=== PATIENT | female | born 1945 | race Caucasian/White ===

== ENCOUNTER 2016-09-24 11:05 | Inpatient (IN) | payer OTHER ==
[~2016-09-24] VITALS: Ht 162.6 cm; Wt 103.0 kg
--- NOTE | ~2016-09-24 | HC ---
Formerly [facility] [place] [address] CONSULTATION Name: ZACHERY FARFAN Room #: 543-P [facility] IN .R.#: [id number] Admission: 09/24/16 Attend Phys: Tony Downs MD Discharge: Date of : 45 Report #: [id number] THIS REPORT FOR: //name// CC: Tony Downs King Adriana DATE OF SERVICE: 09/24/2016 SERVICE: Orthopedics. CONSULTING PHYSICIAN: Devin Bryant MD REQUESTING PHYSICIAN: Tony Downs MD REASON FOR CONSULTATION: Right elbow trauma. 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 PAST SURGICAL HISTORY: Right hand squamous cell carcinoma excision, basal cell carcinoma excision, hysterectomy in 1988, cardiac stent in February of 2006 following myocardial infarction, cholecystectomy in 1993. ALLERGIES: NITROFURANTOIN and MORPHINE. MEDICATIONS: Presently Bystolic, Coenzyme Q10, Praluent, Zantac, vitamin D3, insulin, Norvasc, Diovan, metformin, fenofibrate, acid, aspirin 325 mg, fish oil, levothyroxine. SOCIAL HISTORY: The patient is . She does not use tobacco, alcohol or drugs. She lives in [place], [place]. FAMILY HISTORY: Noncontributory. REVIEW OF SYSTEMS: Positive for left knee pain, left elbow pain, right elbow pain. Negative for fever, chills, nausea, vomiting, diarrhea, chest pain, shortness of breath, recent skin issues or musculoskeletal complaints. No current complaints, although she has a history of recurrent urinary tract infections and urinary frequency. No neurologic issues. She wears a brace for her posterior tibial tendon dysfunction. HISTORY OF PRESENT ILLNESS: The patient is a 71-year-old right-hand dominant female who was going to breakfast today with her and she tripped on a step, Formerly [facility] [address] [place] [address] CONSULTATION Name: ZACHERY FARFAN Room #: 543-P [facility] IN [facility].#: [id number] Admission: 09/24/16 Attend Phys: Tony Downs MD Discharge: Date of : 45 Report #: [id number] fell and landed on her left upper extremity. She sustained a fracture dislocation of the right elbow. Among other injuries, she presented to the emergency room, where she was diagnosed with injuries and then was admitted. She reports pain in the right elbow at rest, pain in the left elbow with movement and some pain in the left knee with attempted ambulation. PHYSICAL EXAMINATION: VITAL SIGNS: Temperature 36.9, pulse 58, respiratory rate 20, blood pressure 156/64, pulse ox 96%. GENERAL: She is overweight, but otherwise healthy well-appearing female. She is lying supine in hospital bed, no acute distress. Alert and oriented. HEAD AND NECK: Demonstrated no signs of acute trauma. She does move her neck without difficulty. MUSCULOSKELETAL: There is tenderness to the right upper extremity over the shoulder as well as the elbow. The compartments are soft. She can be palpated through the splint. She is in a right arm long arm splint with a sling in place. She has sensation intact, graded as normal by her subjective assessment in the distribution of the radial, median and ulnar nerves. She demonstrates weak motor function to these nerves as well. Limited significantly by pain. There is brisk capillary refill present. The left upper extremity skin is intact. She has IV in place. She has pain with active pronation and supination of the elbow referred to the lateral elbow. There is tenderness over the radial head. No tenderness over the shoulder, wrist or fingers. She has motor and sensory function intact distally with palpable pulse. Left lower extremity: There is a small palpable swelling on the anterolateral aspect of the left knee. She has good range of motion, no effusion, no bony crepitus. She has a palpable pulse. She has decreased sensation secondary to neuropathy. No signs of acute injury. Negative logroll. Right lower extremity: Negative logroll. No bony or soft tissue tenderness or crepitus. Palpable pulse is present and altered distal neurologic examination secondary to neuropathy. IMAGING: Left elbow x-rays demonstrate a nondisplaced left radial head fracture extending into the radial neck, it is longitudinal in orientation. No other fractures. Left knee 2 views negative for fracture or dislocation. Right humerus, elbow and forearm x-rays are taken. There is a fracture dislocation of the right elbow with highly comminuted coronoid and what appears to be a highly comminuted olecranon fracture and what appears to be a comminuted coronoid fracture. CT scan of the right elbow shows no evidence of skin tenting. There is a fracture dislocation of the proximal ulna with radial head dislocation, ulnohumeral dislocation, comminuted olecranon fracture extending into the shaft and coronoid fracture. IMPRESSION: 1. A 71-year-old female with right elbow highly comminuted fracture dislocation. 2. Nondisplaced left radial head and neck fractures. [address] [address] CONSULTATION Name: ZACHERY FARFAN Room #: 543-P ADM IN Tania#: [id number] Admission: 09/24/16 Attend Phys: Tony Downs MD Discharge: Date of : 45 Report #: [id number] 3. Left knee contusion. 4. Insulin-dependent diabetes mellitus, recently poorly controlled. 5. History of coronary artery disease status post stent. PLAN: I had a long discussion with the patient and her about these injuries with management. She will be allowed range of motion as tolerated. I recommended against a sling as she will be immobilized in the right elbow for some time. Regarding the right elbow, this is a severe injury to the elbow with a high incidence of complications whether that be associated neurologic injury, malunion, nonunion, recurrent instability and especially stiffness postoperatively. I discussed the treatment strategy with her. We will proceed with surgical treatment with open reduction and internal fixation, ligament repair, stabilization of the instability as indicated and advancement to range of motion as soon as able. We also discussed risk of infection and hardware irritation due to subcutaneous placement of much of the hardware as a result of this surgery. I explained the potential for increased infection due to the diabetes and recent poorly controlled sugars and encouraged strict sugar control and immediate intermediate postoperative period. Her questions were answered. Finally we will proceed with surgery tomorrow if she is felt to be medically optimized. If not we will hold off and move forward and internal medicine admitting team has felt her to be in optimal condition. <ELECTRONICALLY SIGNED> By: Devin Bryant MD 09/25/16 1036 1735 [id number] Devin Bryant MD /deb
--- NOTE | ~2016-09-24 | O ---
[facility] [place] [address] OPERATIVE REPORT Name: ZACHERY FARFAN Room #: 543-P ADM IN M.R.#: [id number] Admission: 09/24/16 Attend Phys: Tony Downs MD Discharge: Date of : 45 Report #: [id number] THIS REPORT FOR: //name// CC: Tony Wright DATE OF SERVICE: 09/25/2016 SERVICE: Orthopedics. FACILITY: [facility]. SURGEON: Devin Bryant MD MEDICAL PRACTICE ASSISTANT: None. PREOPERATIVE DIAGNOSES: 1. Right elbow fracture dislocation. 2. Right radial head fracture. 3. Right olecranon fracture of proximal ulna, highly comminuted. 4. Right coronoid fracture of proximal ulna, comminuted. POSTOPERATIVE DIAGNOSES: 1. Right elbow fracture dislocation. 2. Right radial head fracture, comminuted. 3. Right olecranon fracture of proximal ulna, highly comminuted. 4. Right coronoid fracture of proximal ulna, comminuted. 5. Right elbow lateral ligament tear. 6. Traumatic chondromalacia of distal humerus, olecranon and radial head PROCEDURE: 1. Open reduction, right elbow dislocation. 2. Open reduction internal fixation, right proximal ulnar fracture including fixation of the coronoid and olecranon fractures. 3. Open reduction right radial head dislocation with excision of loose body from radiocapitellar joint. 4. Open repair, right elbow lateral ligament tear. 5. Open ulnar nerve decompression & neurolysis, right elbow. COMPLICATIONS: None. SPECIMENS: None. DRAINS: Hemovac. ESTIMATED BLOOD LOSS: 50 mL. [facility] [address] [place] [address] OPERATIVE REPORT Name: ZACHERY FARFAN Room #: 543-P [facility] IN [facility]#: [id number] Admission: 09/24/16 Attend Phys: Tony Downs MD Discharge: Date of : 45 Report #: [id number] ANESTHESIA TYPE: Single shot regional nerve block with general endotracheal. FINDINGS: 1. Grossly unstable elbow joint with highly comminuted olecranon fracture and comminuted radial head fracture. 2. Traumatic chondromalacia of the distal humerus where it had driven through the olecranon and articular surface. 3. Radial head fragment excision measuring approximately 10% of surface area. Fragment was too small for internal fixation. 4. Synthes 3.5 mm locking LCP olecranon plate with 6 shaft holes. 5. Mitek QuickAnchor with double loaded #2 suture anchor for lateral ligament repair. 6. Anatomic reduction on multiple planes of x-ray including lateral after skin closure and splint application. HISTORY AND INDICATIONS: The patient is a 71-year-old right-hand dominant female who fell and sustained a severe right elbow injury at a restaurant yesterday. She presented to the emergency room, where she was noted to have a fracture dislocation of the right elbow. She is also noted to have a nondisplaced fracture of the left radial head and radial neck. This is being treated conservatively with active range of motion. The right elbow was indicated for surgery for the right upper extremity and the risks, benefits, alternatives and indications for surgery were discussed with her during a long preoperative visit during the initial consultation and discussed with her as well at the same time. Risks include but not limited to pain, bleeding, infection, injury to nerves or blood vessels, persistent pain despite surgical intervention, failure of any repairs, reconstruction, progression of any preexisting chondral injury, stiffness, need for further surgery including revision, hardware removal, arthrofibrosis procedure as well as complications related to anesthesia such as stroke, heart attack, pulmonary complications, thromboembolic disease and . Despite these risks, she wished to proceed. PROCEDURE IN DETAIL: After right upper extremity was correctly identified in the preoperative holding area as the operative extremity, the patient underwent placement of a single shot regional nerve block by the anesthesia team. She was then taken to the operating room and placed supine on operating table and general endotracheal anesthesia was induced without complication. Then she was turned to the lateral decubitus position with the right side up. All bony prominences and subcutaneous nerves were padded appropriately. Prophylactic antibiotics were administered with 2 grams Ancef and redosed later in the case. Due to her elevated sugars in the 200-250 mL range recently and a stated history of previous recurrent infection, she also received vancomycin later in the procedure. Right upper extremity was then prepped and draped in standard [address] [address] OPERATIVE REPORT Name: ZACHERY FARFAN Room #: 543-P [facility] IN ..#: [id number] Admission: 09/24/16 Attend Phys: Tony Downs MD Discharge: Date of : 45 Report #: [id number] sterile fashion. A time out was performed. A sterile tourniquet was applied to the right upper extremity. An Esmarch was used to exsanguinate the extremity and tourniquet was inflated to 250 mmHg. The total tourniquet time was 2 hours and 53 minutes. The tourniquet was initially inflated for 2 hours, then it was let down for 54 minutes and then it was elevated for 53 additional minutes. A standard posterior approach was utilized so that all procedures could be done through this. Full thickness skin flaps were developed down to the olecranon and the fracture. The triceps was identified. It had its attachment to the olecranon fragment and intact. There is highly comminuted fracture of the olecranon with cortical fragments as well as multiple small cancellous fragments. There was also articular comminution as was present in the radial head. During the exposure, the ulnar nerve was identified and complete ulnar nerve neurolysis and decompression was performed up proximally into the interval where the nerve exited the septum and then distally into the flexor musculature on the volar forearm. The nerve was protected with vessel loops throughout the procedure. The dissection was then taken laterally where the lateral ligament rupture was visualized. Lateral approach to the joint was completed with a sharp incision through the common extensor tendon origin and then the radial head was evaluated. The longitudinal incision was extended to the annular ligament, which was later repaired in order to obtain access to the more anterior portion of the radiocapitellar joint where the fragment was located. This was a small fragment, but it was providing a block to range of motion under evaluation and this was excised and then approximately 3 pieces of small articular cartilage were removed from the radial capitellar joint as well. This portion of the joint was then thoroughly irrigated and the remaining portion of the radial head moved smoothly without any obstruction to motion. The olecranon fracture was then debrided. The more proximal fragment where the triceps inserted was reflected dorsally to allow visualization of the ulnohumeral joint. There was an extensive amount of comminution. The hematoma was evacuated and then with retraction maneuver on the metaphyseal fragment that was distal to the joint, the coronoid could be evaluated. There was comminution of the coronoid as well, but there was one primary fragment that was retainable after the small loose fragments were debrided and discarded as they were not reconstructable. A total of 2 #2 nonabsorbable sutures were passed through and around the coronoid process in mattress fashion. 1 mm drill holes were placed so that the primary suture could be passed with suture passage device around the anterior aspect of the coronoid incorporating a portion of the capsule, but ensuring that the soft tissue penetration was minimal, so as to protect the anterior neurovascular structures. After this was performed, a drill hole was created x 3 through the metaphyseal proximal ulna fragment and then the sutures were passed through this and they were tied securely and this provided a good anatomic reduction of the [address] [address] OPERATIVE REPORT Name: FARFANZACHERY Room #: 543-P [facility] IN ..#: [id number] Admission: 09/24/16 Attend Phys: Tony Downs MD Discharge: Date of : 45 Report #: [id number] coronoid process. After this was completed, the 6-[id number]-adsaecw ulnar fracture was then addressed. There was a coronal split involving essentially the middle fragment, which was then exposed and debrided of hematoma and then this was reduced with a reduction forceps to the ulnar shaft fragment and a total of 3 Synthes 2.4 mm screws were placed in interfragmentary mode to build back this metaphyseal segment to the shaft segment with good compression using lag screw technique and countersunk screws. This allowed for application of the plate as well without interference. After the shaft had been built back to the metaphyseal segment with the coronal split, this essentially reduced the fracture to 2 working segments and the plate was then provisionally fixed to the proximal olecranon segment after the triceps insertion had been split in line with its fibers and retracted so that the plate could be placed more flush against the bone. It was provisionally fixed and then reduction was performed using the medial cortex as the cortical cabrera and then x-ray was used to assess the reduction. We confirmed that the plate was centered on the ulnar shaft. The plate was fixed in a compression mode to the shaft and then using standard AO compression technique, the cortical fixation was achieved distally after locking screws had been placed in the proximal segment. Multiple planes of x-ray were used throughout this portion of the procedure in order to ensure that no hardware penetrated the joint space. The initial screw that was used to reduce the plate to bone was swapped out on the shaft and the screw holes were filled proximally and distally to achieve good cortical purchase distally and locking screw cancellous purchase proximally. After this was completed, x-rays were again used to confirm that the reduction was anatomic with appropriate position of hardware and then attention was turned towards the lateral ligament complex. A Mitek double loaded QuickAnchor was placed at the insertion point of the lateral collateral ligament complex and the lateral ligaments were then repaired back to the lateral aspect of the elbow after a sdwtfo-nq-ueajo stitch had been applied to reapproximate the annular ligament. With the lateral ligaments repaired, there was significantly improved stability of the dislocation and then the lateral extensor approach was closed in jfjk-zf-iqaq fashion as well. The wound was then copiously irrigated at this point. We again checked x-ray to ensure that the fixation and reduction was felt to be adequate. At this point, the wound was then thoroughly irrigated once more and the triceps was repaired over the proximal tab of the olecranon plate. 500 mg of vancomycin powder was then distributed within the deep aspect of the wound and overlying the plate and then a drain was placed on the lateral aspect of the elbow and then the fascial layer [address] [address] OPERATIVE REPORT Name: ZACHERY FARFAN Room #: 543-P [facility] IN [facility].#: [id number] Admission: 09/24/16 Attend Phys: Tony Downs MD Discharge: Date of : 45 Report #: [id number] was closed with 0 Vicryl suture in interrupted fashion and the skin was closed with 2-0 Vicryl followed by delmar and sterile dressing was applied followed by a very well-padded splint with the elbow in 90 degrees. During the closure and during the splint application, the lateral x-ray was taken to ensure that reduction was present and the ulnohumeral articulation was found to be anatomically reduced. Prior to closure, the elbow was taken through range of motion and was found to be stable under fluoroscopy through flexion and extension, pronation and supination and this will help guide postoperative care. There were no complications and all counts were recorded as correct. <ELECTRONICALLY SIGNED> By: Devin Bryant MD 09/26/16 0903 1757 [id number] Devin Bryant MD /nt
--- NOTE | ~2016-09-24 | HC ---
[facility] [place] [address] CONSULTATION Name: ZACHERY FARFAN Room #: 543-P [facility] IN ..#: [id number] Admission: 09/24/16 Attend Phys: Tony Downs MD Discharge: Date of : 45 Report #: [id number] THIS REPORT FOR: //name// CC: Tony Wright DATE OF SERVICE: 09/27/2016 HISTORY OF PRESENT ILLNESS: The patient is a 71-year-old white female with a prior history of hypertension, elevated lipids, diabetes mellitus type 2 who had a fall, sustaining bilateral upper extremity fractures. She sustained a right ulnar fracture with radial head fracture and dislocation and right olecranon fracture. She underwent open reduction and internal fixation with ulnar decompression surgery on 09/25/2016. As far as the left upper extremity, this was a left radial head and neck fracture, which is being managed nonoperatively with the left upper extremity splint. She is limited to nonweightbearing right upper extremity in a sling. Left upper extremity, she does not need to sling, can use the left arm for ADLs, full range of motion, active assisted range of motion, but no lifting. We are seeing her in rehabilitation medicine consultation. PAST MEDICAL HISTORY: Includes coronary artery disease, diabetes mellitus type 2, hypertension, history of hyperlipidemia. MEDICATIONS: Please see the full medication listing. SOCIAL HISTORY: Lives in a duplex with her , 2 steps in, 12 inside to second level where the bedroom and bathroom are. She did not utilize gait aids premorbidly. REVIEW OF SYSTEMS: Did not offer any current complaints of chest pain, shortness of breath, or abdominal discomfort. She has some upper extremity pain complaints as expected. PHYSICAL EXAMINATION: GENERAL: A 71-year-old overweight white female in no obvious distress. VITAL SIGNS: Last recorded temperature is 98.9, pulse 66, respirations 16, blood pressure 156/72. She is alert, pleasant. HEENT: Appeared to be benign. NEUROLOGIC: Cranial nerves are grossly intact. Facies are symmetric. She is overweight. She has the right upper extremity in a sling. The right arm was wrapped. She has a small amount of edema of that right thumb and fingers. Left upper extremity is open to air. She is able to lift that left arm with left shoulder flexion to about 90 degrees. She was able to use the arm for some gentle dexterity. Appeared to have strength probably a grade ____, although I did not test her specifically with the recent fracture. Lower extremities, [address] [address] CONSULTATION Name: ZACHERY FARFAN Room #: 543-P [facility] IN [facility].#: [id number] Admission: 09/24/16 Attend Phys: Tony Downs MD Discharge: Date of : 45 Report #: [id number] focal calf swelling, functional range of motion without obvious focal weakness. Functionally, she has been max assist of 2, sit to supine, transfers, however, were min assist and once up she was able to ambulate 30 feet mod assist. ASSESSMENT: A 71-year-old white female with the following problem list: 1. Bilateral upper extremity fractures with operative management of the right upper extremity, nonweightbearing, and nonoperative management of the left upper extremity. Please see the above details. 2. Hypertension. 3. Coronary artery disease. 4. Diabetes mellitus type 2. 5. Hyperlipidemia. PLAN: The patient unfortunately does not meet [address] rehabilitation criteria. We will need to look at facilities within her insurance coverage. Discussion with the patient and . Thank you for asking us to assist in this patient's care. By: 1628 [id number] Walter Kiser MD /nt
--- NOTE | ~2016-09-24 | EKG ---
[address] [place] [address] ELECTROCARDIOGRAM REPORT Name: ZACHERY FARFAN Room #: 543-[facility] IN .R.#: [id number] Admission: 09/24/16 Attend Phys: Tony Downs MD Discharge: 09/30/16 Date of : 45 Report #: [id number] THIS REPORT FOR: //name// [facility] Test Date: 2016-09-30 Test Time: 13:28:21 Pat Name: ZACHERY FARFAN Department: Room: 543 Gender: F Hemmer Automatic: ANÍBAL : 1945 Requested By: Tony Downs Order Number: [id number] MD: Jacob Mims Measurements Intervals [place] Rate: 64 P: 45 CO: 197 QRS: -1 QRSD: 113 T: -4 QT: 442 QTc: 456 Interpretive Statements Sinus rhythm Ventricular premature complex Abnormal R-wave progression, late transition Probable left ventricular hypertrophy Inferior infarct, old Baseline wander in lead(s) V4 Compared to ECG 09/24/2016 13:43:48 Ventricular premature complex(es) now present Electronically Signed On 10-01-2016 8:16:58 CDT by Jacob Mims [email or web address] <ELECTRONICALLY SIGNED> By: Jacob Mims MD, FAC 10/01/16 0816 1328 1328 Jacob Mims MD, FAC /EPI
--- NOTE | ~2016-09-24 | EKG ---
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
[~2016-09-24 11:05] MED LIST: ASPIRIN325 PO; BISACODYL SUPP10 MG RECTAL; BYSTOLIC 5 MG5 M1 PO; CIPRO500 MG PO; CIPROFLOXACIN500 M1 PO; CO Q-10100 MG PO; COLACE100 MG PO; DIOVAN320 MG PO; FISH OIL 1,2001 EAC4 PO; GLUCOPHAGE1000 MG PO; LESCOL XL80 MG PO; LEVOTHYROXINE 0.15MG PO; MIRALAX17 GM PO; NORCO 5-325 TA1 EACH PO; NORVASC10 MG PO; PERCOCET PO; SYNTHROID125 MCG PO; TAMSULOSIN HCL0.4 M1 PO; THERA-M CAPLET1 EACH PO; TRADJENTA5 MG PO; TRILIPIX135 MG PO
[2016-09-24 11:06] VITALS: BP 221/103
[2016-09-24] MEDS ORDERED: PRALUENT P150 MG/1 M SQ (11:31)
[2016-09-24] MEDS ORDERED: ZANTAC 150MG T150 MG PO (11:33)
[2016-09-24] MEDS ORDERED: VITAMIN D3400 UNIT PO (11:34)
[2016-09-24] MEDS ORDERED: HUMALOG100 UNIT/1 SUBQ (11:35)
[2016-09-24] MEDS ORDERED: LEVEMIR SUBQ (11:35)
[2016-09-24 13:16] LABS: BASOPHILS 1.1 % (0.0-2.0); EOSINOPHILS 3.1 % (0.0-3.0); HEMATOCRIT 38.5 % (37.0-47.0); LYMPHOCYTES 28.7 % (24.0-44.0); MCH 28.7 pg (26.0-34.0); MCHC 33.7 g/dL (28.0-37.0); MCV 85.2 fL (80.0-100.0); MONOCYTES 8.7 % (1.0-8.0); PLATELET COUNT 280 thou/uL (150-400); POLYS 58.4 % (36.0-66.0); RBC 4.52 mil/uL (4.20-5.00); RDW 13.3 % (10.5-14.5); WBC 10.3 thou/uL (4.0-11.0)
[2016-09-24 13:19] LABS: MANUAL DIFF NO
[2016-09-24 13:24] LABS: CALCIUM 9.5 mg/dL (8.5-10.1); CREATININE 1.1 mg/dL (0.6-1.0)
[2016-09-24 13:25] LABS: POTASSIUM 4.5 mmol/L (3.5-5.1)
[2016-09-24 16:48] VITALS: BP 171/80
[2016-09-24 20:50] VITALS: BP 166/69
[2016-09-25 04:15] VITALS: BP 146/52
[2016-09-25 05:09] LABS: HEMATOCRIT 35.1 % (37.0-47.0); HEMOGLOBIN 11.8 gm/dL (12.0-15.0); MCH 28.9 pg (26.0-34.0); MCHC 33.6 g/dL (28.0-37.0); MCV 86.2 fL (80.0-100.0); RBC 4.07 mil/uL (4.20-5.00); RDW 13.2 % (10.5-14.5); WBC 9.3 thou/uL (4.0-11.0)
[2016-09-25 05:22] LABS: CALCIUM 8.4 mg/dL (8.5-10.1); CREATININE 0.9 mg/dL (0.6-1.0); POTASSIUM 4.2 mmol/L (3.5-5.1)
[2016-09-25 07:48] VITALS: BP 170/57
[2016-09-26 02:15] VITALS: BP 160/80
[2016-09-26 06:19] LABS: HEMATOCRIT 34.3 % (37.0-47.0); HEMOGLOBIN 11.5 gm/dL (12.0-15.0); MCHC 33.7 g/dL (28.0-37.0); MCV 86.3 fL (80.0-100.0); RBC 3.97 mil/uL (4.20-5.00); RDW 13.9 % (10.5-14.5); WBC 10.2 thou/uL (4.0-11.0)
[2016-09-26 06:31] LABS: CALCIUM 8.1 mg/dL (8.5-10.1); CREATININE 0.9 mg/dL (0.6-1.0); POTASSIUM 3.8 mmol/L (3.5-5.1)
[2016-09-26 16:00] VITALS: BP 153/59
[2016-09-26 20:10] VITALS: BP 172/62
[2016-09-27 04:15] VITALS: BP 172/69
[2016-09-27 07:25] VITALS: BP 159/58
[2016-09-27 15:21] VITALS: BP 156/72
[2016-09-27 20:00] VITALS: BP 148/68
[2016-09-28 04:00] VITALS: BP 164/62
[2016-09-28 06:45] LABS: HEMOGLOBIN 10.8 gm/dL (12.0-15.0); MCH 29.4 pg (26.0-34.0); MCHC 33.8 g/dL (28.0-37.0); MCV 86.8 fL (80.0-100.0); RBC 3.68 mil/uL (4.20-5.00); RDW 13.3 % (10.5-14.5); WBC 8.3 thou/uL (4.0-11.0)
[2016-09-28 06:58] LABS: CREATININE 0.8 mg/dL (0.6-1.0); POTASSIUM 3.7 mmol/L (3.5-5.1)
[2016-09-28 09:04] VITALS: BP 154/72
[2016-09-28 15:35] VITALS: BP 136/55
[2016-09-28 20:00] VITALS: BP 143/62
[2016-09-29 04:00] VITALS: BP 152/64
[2016-09-29 07:55] VITALS: BP 170/68
[2016-09-29 16:27] VITALS: BP 170/69
[2016-09-29 20:00] VITALS: BP 183/66
[2016-09-30 00:30] VITALS: BP 171/73
[2016-09-30 05:35] VITALS: BP 102/56
[2016-09-30 07:15] VITALS: BP 181/81
[2016-09-30] MEDS ORDERED: OXYCODONE HCL10 MG PO (10:59)
== END 2016-09-30 16:45 | DRG 512 ==
LOC: ER 11:05 → EROBS 12:14 → 5S 12:14
PROVIDERS: Hospitalist; Physician Assistant
PROC: 2W3CX1Z Immobilization of Right Lower Arm using Splint (ICD-10-PCS; 2016-09-24)
PROC: 0RSL0ZZ Reposition Right Elbow Joint, Open Approach (ICD-10-PCS; principal; 2016-09-25)
PROC: 0PSH04Z Reposition Right Radius with Internal Fixation Device, Open Approach (ICD-10-PCS; principal; 2016-09-25)
PROC: 0PSK04Z Reposition Right Ulna with Internal Fixation Device, Open Approach (ICD-10-PCS; principal; 2016-09-25)
PROC: 01N40ZZ Release Ulnar Nerve, Open Approach (ICD-10-PCS; principal; 2016-09-25)
DX: S53.104A Unspecified dislocation of right ulnohumeral joint, initial encounter (principal); S52.121A Displaced fracture of head of right radius, initial encounter for closed fracture; S52.021A Displaced fracture of olecranon process without intraarticular extension of right ulna, initial encounter for closed fracture; I10 Essential (primary) hypertension; E78.00 Pure hypercholesterolemia, unspecified; E03.9 Hypothyroidism, unspecified; E11.9 Type 2 diabetes mellitus without complications; E78.5 Hyperlipidemia, unspecified; S80.02XA Contusion of left knee, initial encounter; W18.39XA Other fall on same level, initial encounter; I25.10 Atherosclerotic heart disease of native coronary artery without angina pectoris; K59.00 Constipation, unspecified; S52.041A Displaced fracture of coronoid process of right ulna, initial encounter for closed fracture; Z90.710 Acquired absence of both cervix and uterus; Z95.5 Presence of coronary angioplasty implant and graft; Z88.6 Allergy status to analgesic agent; Z88.8 Allergy status to other drugs, medicaments and biological substances; I25.2 Old myocardial infarction; Y92.89 Other specified places as the place of occurrence of the external cause; Y93.89 Activity, other specified; Y99.8 Other external cause status; Z86.73 Personal history of transient ischemic attack (TIA), and cerebral infarction without residual deficits; Z90.49 Acquired absence of other specified parts of digestive tract
CPT/HCPCS: 10086; 50010; 50101; 50386; 50455; 51412; 51736; 53347; 55430; 56525; 56526; 56528; 56529; 56667; 56789; 57091; 62110; 62900; 70005

== ENCOUNTER → 2016-11-18 | Outpatient (CLI) | payer OTHER ==
[~2016-11-18] MED LIST changes: +HUMALOG100 UNIT/1 SUBQ; +LEVEMIR SUBQ; +OXYCODONE HCL10 MG PO; +PRALUENT P150 MG/1 M SQ; +VITAMIN D3400 UNIT PO; +ZANTAC 150MG T150 MG PO
== END ==
LOC: MRI 07:23
DX: M19.011 Primary osteoarthritis, right shoulder (principal); M75.51 Bursitis of right shoulder; M75.101 Unspecified rotator cuff tear or rupture of right shoulder, not specified as traumatic; R59.9 Enlarged lymph nodes, unspecified

== ENCOUNTER 2017-07-23 11:39 | Inpatient (IN) | payer OTHER ==
[~2017-07-23] VITALS: Ht 162.6 cm; Wt 106.8 kg
--- NOTE | ~2017-07-23 | HC ---
[facility] [place] [address] CONSULTATION Name: ZACHERY FARFAN Room #: 427-P [facility]..#: [id number] Admission: 07/23/17 Attend Phys: Anila Rojas MD Discharge: 07/25/17 Date of : 45 Report #: [id number] THIS REPORT FOR: //name// CC: Anila Wright MD DATE OF SERVICE: 07/24/2017 HISTORY OF PRESENT ILLNESS: The patient is a 72-year-old female, began passing bright red blood per rectum yesterday. She had several episodes with clots. This was not associated with pain for the most part. She denies any fevers or chills. No nausea or vomiting. No previous history of GI bleed. Last colonoscopy was reportedly in 2012 in which diverticulosis was noted. She believes there was a polyp removed at that time as well. She does complain of some low back pain. She was also diagnosed with a urinary tract infection on admission, which she has had in the past. There is no family history of colon cancer. Her hemoglobin on admission was 12.7, it is 11.3 today. She is not having any further bleeding at this time. She denies any chest pain or shortness of breath. She was taking aspirin at home. A CT scan of the abdomen and pelvis was performed yesterday on admission. This showed pericystic fat stranding surrounding the urinary bladder suggesting urinary tract infection, questionable wall thickening of the rectosigmoid area, most likely due to incomplete distention, extensive diverticulosis without evidence of diverticulitis noted. Hepatomegaly noted and hepatic steatosis, previous cholecystectomy changes and hiatal hernia as well as pancreatic atrophy. PAST MEDICAL HISTORY: History of diverticulosis, urinary tract infection, spinal cord stroke in 1999, hypertension, hypothyroidism, diabetes, obesity, previous cholecystectomy, previous hysterectomy. Coronary artery disease, status post stent placement in 2005. Previous skin cancer history. FAMILY HISTORY: Negative for colon cancer. SOCIAL HISTORY: She denies any tobacco or alcohol use. REVIEW OF SYSTEMS: As per HPI. MEDICATIONS AT HOME: Bystolic, amlodipine, aspirin, gabapentin, alprazolam, Synthroid, Levemir, metformin. PHYSICAL EXAMINATION: VITAL SIGNS: Temperature is 98.2, pulse 53, blood pressure 174/79, respiratory rate is 16. GENERAL: She is alert and oriented x 3, in no acute distress. [facility] [address] [place] [address] CONSULTATION Name: ZACHERY FARFAN Room #: 427-P [facility] IN ..#: [id number] Admission: 07/23/17 Attend Phys: Anila Rojas MD Discharge: 07/25/17 Date of : 45 Report #: [id number] HEENT: Sclerae nonicteric. Oropharynx clear. NECK: Supple, without lymphadenopathy. HEART: Regular rate and rhythm. CHEST: Clear to auscultation bilaterally. ABDOMEN: Soft. She is mildly tender to palpation in the lower quadrants bilaterally. Nondistended, normoactive bowel sounds. EXTREMITIES: No cyanosis, clubbing or edema. LABORATORY DATA: Sodium 138, potassium 4.5, chloride 106, bicarbonate 21, BUN 14, creatinine 0.9, glucose 189. AST 49, total bilirubin 0.6, calcium 9.3, alkaline phosphatase 36, ALT is 39, total protein 6.1, albumin 2.9. INR 1.0. WBC is 7.4, hemoglobin 11.3, platelet count is 241. UA shows greater than 25 wbc's, bacteria greater than 30. ASSESSMENT AND PLAN: 1. Hematochezia, suspected diverticular bleed. The patient has diverticulosis on CT. No evidence of diverticulitis. There is a possible thickening of the rectosigmoid colon. Her last colonoscopy was in 2012 where the polyp reportedly was removed. It appears that her bleeding has stopped at this time. She had a mild drop in her hemoglobin. I had a long discussion with the patient regarding her options. We can simply observe at this point versus proceeding with colonoscopy. The plan is to proceed with colonoscopy tomorrow. Therefore, we will place the patient on clear liquids today and prep with MiraLax this afternoon, n.p.o. after midnight. 2. Urinary tract infection. The patient is on antibiotics. Thank you for allowing me to participate in her care. <ELECTRONICALLY SIGNED> By: Dennis Arroyo MD 07/27/17 0821 1014 1517 Dennis Arroyo MD /nt
--- NOTE | ~2017-07-23 | H ---
[facility] [address] HISTORY AND PHYSICAL Name: ZACHERY FARFAN Room #: 427-P [facility] IN .R.#: [id number] Admission: 07/23/17 Attend Phys: Anila Rojas MD Discharge: 07/25/17 Date of : 45 Report #: [id number] THIS REPORT FOR: //name// CC: Anila Kaufmanen Adriana DATE OF SERVICE: 07/23/2017 REASON FOR PRESENTATION: Bleeding per rectum. HISTORY OF PRESENT ILLNESS: A 72-year-old with known diverticulosis. She presented to the Emergency Room with rectal bleeding. This started this morning. This was bright red blood every time she has a bathroom. She did have a couple of other episodes this morning after the initial event. This was associated with some right lower quadrant pain. She did have some lightheadedness, but no syncope. She is taking aspirin, no other blood thinner. No nonsteroidal anti-inflammatory medications. She had a colonoscopy done back in 2012 and this was consistent with her known history of diverticulosis. She denies nausea or vomiting. No reported chest pain or shortness of breath. PAST MEDICAL HISTORY: 1. Spinal cord stroke in 1999, complicated by lower extremity weakness and urinary retention. 2. Urinary retention. 3. Hypertension. 4. Hypothyroidism. 5. Diabetes mellitus. 6. Status post cholecystectomy. 7. Status post total abdominal hysterectomy with salpingo-oophorectomy. 8. Coronary artery disease post stent in 2005. 9. Skin cancer with multiple surgeries. SOCIAL HISTORY: No drug or alcohol abuse. 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 FAMILY HISTORY: Mother had kidney failure. Cancer runs in the family. One of her brothers had myocardial infarction. REVIEW OF SYSTEMS: GENERAL: No fever or chills, but she did have some sort of weakness. CARDIOVASCULAR: No chest pain or palpitation. PULMONARY: No cough or hemoptysis. GASTROINTESTINAL: As per the history of present illness. GENITOURINARY: Occasional frequency, but no urgency. MUSCULOSKELETAL: Bilateral lower extremity weakness. SKIN: No rash or ulcerations. [facility] [address] [place] [address] HISTORY AND PHYSICAL Name: ZACHERY FARFAN Room #: 427-P [facility].#: [id number] Admission: 07/23/17 Attend Phys: Anila Rojas MD Discharge: 07/25/17 Date of : 45 Report #: [id number] MEDICATIONS: She is currently maintained on: 1. Bystolic. 2. Amlodipine. 3. Aspirin. 4. Gabapentin. 5. Alprazolam. 6. Metformin. 7. Levemir. 8. Levothyroxine. PHYSICAL EXAMINATION: GENERAL: She is alert, oriented, in no apparent distress. VITAL SIGNS: Blood pressure is elevated, initially at 206/68, down to 163/74, pulse rate 58, respiratory rate 16. HEAD AND NECK: No jugular venous distention, no bruit, no thyromegaly. CHEST: Clear to auscultation bilaterally. CARDIOVASCULAR: Regular with no rub detected. ABDOMEN: Soft with slight tenderness in the right lower quadrant. EXTREMITIES: Lower extremities, +1 edema. LABORATORY DATA: Reviewed. Hemoglobin 12.7. Sodium 135, creatinine 1.2. Urine with trace blood and trace leukocyte esterase. INR is 1.0. CT abdomen and pelvis is consistent with diverticulosis. ASSESSMENT, IMPRESSION AND PLAN: 1. Hematochezia due to diverticulosis. 2. Hypertension. 3. Diabetes mellitus. 4. History of spinal cord stroke. 5. Coronary artery disease. 6. Admission. 7. Watch hemoglobin. 8. Gastroenterology consultation. 9. Keep n.p.o. 10. Resume thyroid medications. 11. Resume blood pressure medications. 12. Keep off aspirin. 13. Watch blood sugar and hold her diabetic medications, place [place] [address] HISTORY AND PHYSICAL Name: ZACHERY FARFAN Room #: 427-P [facility] IN .R.#: [id number] Admission: 07/23/17 Attend Phys: Anila Rojas MD Discharge: 07/25/17 Date of : 45 Report #: [id number] 14. Proton pump inhibitor. 15. No deep venous thrombosis prophylaxis for now. <ELECTRONICALLY SIGNED> By: Anila Rojas MD 08/10/17 1017 1546 [facility] Anila Rojas MD /deb
[2017-07-23 11:56] VITALS: BP 206/68
[2017-07-23 12:27] LABS: ABSOLUTE NEUTROPHILS 4.5 thou/uL (1.4-8.2); EOSINOPHILS 1.8 % (0.0-3.0); HEMATOCRIT 37.8 % (37.0-47.0); HEMOGLOBIN 12.7 gm/dL (12.0-15.0); LYMPHOCYTES 39.8 % (24.0-44.0); MCH 28.6 pg (26.0-34.0); MCHC 33.6 g/dL (28.0-37.0); MCV 85.1 fL (80.0-100.0); MONOCYTES 6.9 % (1.0-8.0); PLATELET COUNT 311 thou/uL (150-400); POLYS 50.5 % (36.0-66.0); RBC 4.44 mil/uL (4.20-5.00); RDW 13.3 % (10.5-14.5); WBC 8.9 thou/uL (4.0-11.0)
[2017-07-23 12:37] LABS: CALCIUM 9.3 mg/dL (8.5-10.1); CREATININE 1.2 mg/dL (0.6-1.0); POTASSIUM 4.6 mmol/L (3.5-5.1)
[2017-07-23 15:08] LABS: URINE BILIRUBIN NEGATIVE (Negative); URINE BLOOD TRACE (Negative); URINE CLARITY CLEAR; URINE COLOR YELLOW; URINE GLUCOSE-RANDOM* NEGATIVE (Negative); URINE KETONES NEGATIVE (Negative); URINE NITRITE-REFLEX NEGATIVE (Negative); URINE PROTEIN (DIPSTICK) NEGATIVE (Negative); URINE SPECIFIC GRAVITY <= 1.005 (1.005-1.035); URINE UROBILINOGEN 0.2 E.U./dl (0.2-1.0)
[2017-07-23 15:09] LABS: URINE LEUKOCYTES-REFLEX TRACE (Negative)
[2017-07-23] MEDS ORDERED: SYNTHROID175 MCG PO (15:24)
[2017-07-23] MEDS ORDERED: REPATHA SU140 MG/1 M SUBQ (15:42)
[2017-07-23] MEDS ORDERED: XANAX 0.25 MG0.25 MG PO (15:44)
[2017-07-23] MEDS ORDERED: NEURONTIN300 MG PO (15:44)
[2017-07-23] MEDS ORDERED: VITAMIN D3400 UNI2 PO (15:45)
[2017-07-23 15:47] VITALS: BP 163/74
[2017-07-23 16:11] VITALS: BP 161/74
[2017-07-23 16:38] VITALS: BP 173/74
[2017-07-23 20:37] VITALS: BP 187/68
[2017-07-23 21:20] VITALS: BP 155/66
[2017-07-24 04:12] VITALS: BP 174/81
[2017-07-24 05:34] LABS: HEMATOCRIT 34.2 % (37.0-47.0); HEMOGLOBIN 11.3 gm/dL (12.0-15.0); MCH 29.1 pg (26.0-34.0); MCHC 33.2 g/dL (28.0-37.0); MCV 87.6 fL (80.0-100.0); RBC 3.9 mil/uL (4.20-5.00); RDW 13.7 % (10.5-14.5); WBC 7.4 thou/uL (4.0-11.0)
[2017-07-24 05:45] LABS: ALBUMIN 2.9 g/dL (3.4-5.0); CREATININE 0.9 mg/dL (0.6-1.0); TOTAL BILIRUBIN 0.6 mg/dL (<0.1-1.0); TOTAL PROTEIN 6.1 g/dL (6.4-8.2)
[2017-07-24 05:53] LABS: POTASSIUM 4.5 mmol/L (3.5-5.1)
[2017-07-24 05:59] LABS: CALCIUM 9.3 mg/dL (8.5-10.1)
[2017-07-24 07:20] VITALS: BP 174/79
[2017-07-24 15:24] VITALS: BP 178/72
[2017-07-24 20:34] VITALS: BP 197/81
[2017-07-25] VITALS: BP 185/75
[2017-07-25 04:10] VITALS: BP 169/76
[2017-07-25 06:43] LABS: HEMATOCRIT 33.8 % (37.0-47.0); HEMOGLOBIN 11.6 gm/dL (12.0-15.0); MCH 29.2 pg (26.0-34.0); MCHC 34.5 g/dL (28.0-37.0); MCV 84.8 fL (80.0-100.0); RBC 3.98 mil/uL (4.20-5.00); RDW 13.7 % (10.5-14.5); WBC 6.7 thou/uL (4.0-11.0)
[2017-07-25 07:18] LABS: ALBUMIN 3.6 g/dL (3.4-5.0); CALCIUM 9.1 mg/dL (8.5-10.1); POTASSIUM 4.2 mmol/L (3.5-5.1); TOTAL BILIRUBIN 0.5 mg/dL (<0.1-1.0); TOTAL PROTEIN 6.5 g/dL (6.4-8.2)
[2017-07-25 15:15] VITALS: BP 128/59
[2017-07-25 16:53] VITALS: BP 128/59
== END 2017-07-25 17:38 | disposition home or self-care (01) | DRG 871 ==
LOC: ER 11:39 → 4E 15:30 → EROBS 15:30 → 4E 16:13 → ENTRNSPT 07-25 16:57 → 4E 07-25 17:38
PROVIDERS: Emergency Medicine; Hospitalist
PROC: 0DJD8ZZ Inspection of Lower Intestinal Tract, Via Natural or Artificial Opening Endoscopic (ICD-10-PCS; principal; 2017-07-25)
DX: A41.9 Sepsis, unspecified organism (principal); K57.91 Diverticulosis of intestine, part unspecified, without perforation or abscess with bleeding; Z68.41 Body mass index [BMI] 40.0-44.9, adult; I10 Essential (primary) hypertension; E78.00 Pure hypercholesterolemia, unspecified; N30.90 Cystitis, unspecified without hematuria; E11.9 Type 2 diabetes mellitus without complications; I25.10 Atherosclerotic heart disease of native coronary artery without angina pectoris; E66.9 Obesity, unspecified; I25.2 Old myocardial infarction; Z95.5 Presence of coronary angioplasty implant and graft; Z90.710 Acquired absence of both cervix and uterus; Z79.4 Long term (current) use of insulin; Z79.82 Long term (current) use of aspirin; Z79.84 Long term (current) use of oral hypoglycemic drugs; Z79.899 Other long term (current) drug therapy; Z85.828 Personal history of other malignant neoplasm of skin; Z90.49 Acquired absence of other specified parts of digestive tract; Z90.79 Acquired absence of other genital organ(s); Z90.721 Acquired absence of ovaries, unilateral; Z88.5 Allergy status to narcotic agent; Z88.8 Allergy status to other drugs, medicaments and biological substances; Z84.1 Family history of disorders of kidney and ureter; Z82.49 Family history of ischemic heart disease and other diseases of the circulatory system; Z80.8 Family history of malignant neoplasm of other organs or systems
CPT/HCPCS: 10084; 62110; 70005

== ENCOUNTER → 2020-04-11 | Outpatient (CLI) | payer OTHER ==
[~2020-04-11] MED LIST changes: +KEFLEX500 M1 PO; +NEURONTIN300 MG PO; +REPATHA SU140 MG/1 M SUBQ; +SYNTHROID175 MCG PO; +VITAMIN D3400 UNI2 PO; +XANAX 0.25 MG0.25 MG PO
== END ==
LOC: SJCVC 16:28
PROVIDERS: ATTEND Internal Medicine Cardiovascular Disease
DX: I25.10 Atherosclerotic heart disease of native coronary artery without angina pectoris (principal); R94.31 Abnormal electrocardiogram [ECG] [EKG]; E78.00 Pure hypercholesterolemia, unspecified; I87.2 Venous insufficiency (chronic) (peripheral); R29.898 Other symptoms and signs involving the musculoskeletal system; R60.9 Edema, unspecified; I10 Essential (primary) hypertension; E11.9 Type 2 diabetes mellitus without complications; Z79.4 Long term (current) use of insulin; E66.9 Obesity, unspecified; Z79.899 Other long term (current) drug therapy

== ENCOUNTER → 2020-04-17 | Outpatient (CLI) | payer OTHER | LOC: SJCVCIMAG 10:54 | PROVIDERS: ATTEND Internal Medicine Cardiovascular Disease | DX: I87.2 Venous insufficiency (chronic) (peripheral) (principal); I10 Essential (primary) hypertension; E78.00 Pure hypercholesterolemia, unspecified; Z79.899 Other long term (current) drug therapy ==

== ENCOUNTER → 2021-01-09 | Outpatient (CLI) | payer OTHER | LOC: SJCVC 11:34 | PROVIDERS: ATTEND Internal Medicine Cardiovascular Disease | DX: R94.31 Abnormal electrocardiogram [ECG] [EKG] (principal); I25.10 Atherosclerotic heart disease of native coronary artery without angina pectoris; I10 Essential (primary) hypertension; E78.00 Pure hypercholesterolemia, unspecified; I87.2 Venous insufficiency (chronic) (peripheral); E11.9 Type 2 diabetes mellitus without complications; R07.89 Other chest pain; Z95.5 Presence of coronary angioplasty implant and graft; Z90.49 Acquired absence of other specified parts of digestive tract; Z90.710 Acquired absence of both cervix and uterus; Z88.2 Allergy status to sulfonamides; Z88.8 Allergy status to other drugs, medicaments and biological substances; Z79.82 Long term (current) use of aspirin; Z79.4 Long term (current) use of insulin; Z79.899 Other long term (current) drug therapy; Z82.49 Family history of ischemic heart disease and other diseases of the circulatory system ==

== ENCOUNTER 2021-01-28 21:58 | Inpatient (IN) | payer OTHER ==
[~2021-01-28] VITALS: Ht 152.4 cm; Wt 108.9 kg
--- NOTE | ~2021-01-28 | P ---
[facility] [place] [address] PROCEDURE REPORT Name: ZACHERY FARFAN Room #: 458-P [facility]..#: [id number] Admission: 01/29/21 Attend Phys: Tony Downs MD Discharge: 01/30/21 Date of : 45 Report #: [id number] THIS REPORT FOR: cc: King Wright MD, Steven E. MD McElhinney, Christian C. MD ~ cc: King Wright MD DATE OF SERVICE: 01/30/2021 PROCEDURE PERFORMED: Upper endoscopy with esophageal dilation. HISTORY OF PRESENT ILLNESS: The patient is a 75-year-old female with bloody stools initially started as a black stool and then changed to bright red blood. This was not associated with nausea or vomiting. She is on aspirin due to history of coronary artery disease. She had a previous diverticular bleed in the past. Apparently, CT scan of the abdomen and pelvis showing diverticulosis, but otherwise normal. She does report some mild dysphagia at times. Her hemoglobin today is 11.4, was 12.1 on admission. Plan is for EGD and colonoscopy. DESCRIPTION OF PROCEDURE: The risks and benefits of the procedure were explained to the patient, those risks including but not limited to bleeding, perforation and the risk of sedation. She understood these risks and gave informed consent. Sedation was given using propofol per anesthesia. Next, using a standard Olympus upper endoscope, the scope was placed in the patient's mouth and advanced under direct vision through the esophagus, stomach and into the second portion of the duodenum. The larynx was normal in appearance. The upper and mid esophagus was normal. A mild Schatzki's ring was noted in the distal esophagus. Upon entering the stomach, a small to medium size hiatal hernia was noted. Overall, the gastric mucosa was normal. The pylorus was normal and patent. The duodenal bulb, first and second portion were all normal. There was no evidence of blood throughout the exam. The scope was then brought back up into the patient's stomach and a Savary guidewire was inserted through the scope, leaving the guidewire in place as the scope was then withdrawn. Next Savary dilation of the esophagus using a 48-Portuguese dilator was performed without difficulty. The dilator and wire were removed. The scope was reintroduced into the patient's stomach. There was no evidence of mucosal tear after dilation. The scope was then withdrawn and the procedure terminated. The patient tolerated the procedure well. IMPRESSION: 1. Mild Schatzki's ring. 2. Small to medium size hiatal hernia. 3. Otherwise, normal upper endoscopy. [address] [address] PROCEDURE REPORT Name: NAHEEDZACHERY Room #: 458-P [facility] IN .R.#: [id number] Admission: 01/29/21 Attend Phys: Tony Downs MD Discharge: 01/30/21 Date of : 45 Report #: [id number] RECOMMENDATIONS: 1. Observe the patient post-dilation. 2. We will proceed with colonoscopy next today. Thank you for allowing me to participate in her care. By: 0946 27 Dennis Arroyo MD /nt
--- NOTE | ~2021-01-28 | P ---
[facility] [place] [address] PROCEDURE REPORT Name: ZACHERY FARFAN Room #: 458-P [facility]..#: [id number] Admission: 01/29/21 Attend Phys: Tony Downs MD Discharge: 01/30/21 Date of : 45 Report #: [id number] THIS REPORT FOR: cc: King Wright MD, Steven E. MD McElhinney, Christian C. MD ~ cc: King Wright MD DATE OF SERVICE: 01/30/2021 PROCEDURE PERFORMED: Colonoscopy. HISTORY OF PRESENT ILLNESS: The patient is a 75-year-old female with recent dark stool followed by bright red blood per rectum. No significant abdominal pain other than mild cramping during the passing of a clot. Her hemoglobin has been stable. Hemoglobin today is 11.4. A CT scan of the abdomen and pelvis was performed which showed sigmoid diverticulosis, but no evidence of diverticulitis. Plan is for colonoscopy, upper endoscopy was just performed, which was essentially negative. DESCRIPTION OF PROCEDURE: The risks and benefits of the procedure were explained to the patient, those risks including but not limited to bleeding, perforation and the risk of sedation. She understood these risks and gave informed consent. Sedation was given using propofol per anesthesia. Next, a digital rectal exam showed skin tag and external hemorrhoid, no evidence of bleeding, otherwise normal. Next, using an Olympus standard colonoscope, the scope was placed in the patient's anus and advanced under direct vision to the cecum. The overall prep was good in most areas. The cecum and ileocecal valve were normal in appearance. Scattered diverticulosis was noted in the ascending colon. The transverse was normal. Multiple diverticula were noted in the descending and sigmoid colon. There was no evidence of blood throughout the exam. In fact, there was no old blood on during the exam either. The rectal mucosa was normal. On retroflexion, nonbleeding internal hemorrhoids were noted; however, there was some mild erythema near the hemorrhoids, suggesting possible recent source of bleed. There were no clots. Again, no evidence of bleeding. The scope was then withdrawn and the procedure terminated. The patient tolerated the procedure well. IMPRESSION: 1. Diverticulosis involving the ascending, descending and sigmoid colon. No evidence of bleeding. No stigmata of recent bleeding. No evidence of blood throughout the exam today. 2. Small to medium sized internal hemorrhoids. Suspect this may be the source of recent gastrointestinal bleed. 3. Skin tag with small external hemorrhoid. No evidence of bleeding. [address] [address] PROCEDURE REPORT Name: ZACHERY FARFAN Room #: 458-P [facility].#: [id number] Admission: 01/29/21 Attend Phys: Tony Downs MD Discharge: 01/30/21 Date of : 45 Report #: [id number] RECOMMENDATIONS: 1. Advance diet. 2. Observe at this point. 3. Okay to discharge to home today. Thank you for allowing me to participate in her care. By: 1007 Dennis Arroyo MD /nt
[2021-01-28 22:04] VITALS: BP 215/82
[2021-01-28 22:28] LABS: URINE BILIRUBIN NEGATIVE (Negative); URINE BLOOD 2+ (Negative); URINE CLARITY CLEAR; URINE COLOR YELLOW; URINE GLUCOSE-RANDOM* NEGATIVE (Negative); URINE KETONES NEGATIVE (Negative); URINE NITRITE-REFLEX NEGATIVE (Negative); URINE PROTEIN (DIPSTICK) NEGATIVE (Negative); URINE UROBILINOGEN 0.2 E.U./dl (0.2-1.0)
[2021-01-28] MEDS ORDERED: AVAPRO300 MG PO (22:28)
[2021-01-28] MEDS ORDERED: OMEPRAZOLE40 MG PO (22:30)
[2021-01-28 22:40] LABS: URINE LEUKOCYTES-REFLEX 3+ (Negative)
[2021-01-28 22:47] LABS: CASTS None Seen /LPF (None Seen); MUCUS None Seen strn/LPF (None Seen); SQUAMOUS None Seen /LPF (0-3)
[2021-01-28 22:48] LABS: CRYSTALS None Seen /LPF (None Seen); URINE RBC 3-10 Few /HPF (NONE SEEN)
[2021-01-28 22:54] LABS: ABSOLUTE NEUTROPHILS 4.4 thou/uL (1.4-8.2); BASOPHILS 0.7 % (0.0-2.0); EOSINOPHILS 1.4 % (0.0-3.0); HEMATOCRIT 35.9 % (37.0-47.0); HEMOGLOBIN 12.1 gm/dL (12.0-15.0); LYMPHOCYTES 39.8 % (24.0-44.0); MCH 28.2 pg (26.0-34.0); MCHC 33.8 g/dL (28.0-37.0); MCV 83.6 fL (80.0-100.0); MONOCYTES 8.7 % (1.0-8.0); PLATELET COUNT 298 thou/uL (150-400); POLYS 49.4 % (36.0-66.0); RDW 14.2 % (10.5-14.5); WBC 8.9 thou/uL (4.0-11.0)
[2021-01-28 23:00] LABS: CALCIUM 8.7 mg/dL (8.5-10.1); CREATININE 1.4 mg/dL (0.6-1.0); POTASSIUM 4.4 mmol/L (3.5-5.1)
[2021-01-28 23:06] LABS: ALBUMIN 3.4 g/dL (3.4-5.0); TOTAL BILIRUBIN 0.3 mg/dL (0.2-1.0); TOTAL PROTEIN 7.4 g/dL (6.4-8.2)
[2021-01-29] VITALS (7 sets, daily range): BP systolic 146–200; BP diastolic 69–90
--- NOTE | 2021-01-29 04:06 | NUR ---
Pt admitted from ED with GIB. A/OX4,BP elevated on admission 197/98 medicated with Hydralazine with relief noted 157/84. Denies pain on assessment. No N/V or bleeding noted at this time. Up with AX1/cane,weak with limp gait. Skin intact,has a skin biopsy site on right cheek no inflammation noted. Reports falling recently,fall safety education provided and agrees to call for help as needed. Pt takes Repathya subq biweekly and is due today;spouse to bring pt's dose and check with Dr/pharmacy if she can have it. SR on telemetry. Fall precautions in place.
--- NOTE | 2021-01-29 04:19 | NUR ---
PT ARRIVED ON THE UNIT AT 0215. PT IS ALERT AND ORIENTED x4. PT WAS ORIENTED TO THE ROOM AND EDUCATED ON THE USE OF CALL LIGHT AND PT VERBALIZED UNDERSTANDING. PT IS TOLERATING RA. PT WAS INFORMED ABOUT NPO ORDERS. PT IS UPX1 TO THE BR WITH A CANE. PT'S BP WAS IN THE 180'S WHICH WAS MANAGED BY ORDERED MEDS. PT DID NOT VERBALIZE ANY CONCERNS. FALL PRECAUTIONS IN PLACE WITH CALL LIGHT WITHIN REACH. WILL CONTINUE TO MONITOR.
--- NOTE | 2021-01-29 13:23 | NUR ---
ASSUMED CARE OF PATIENT AT SHIFT CHANGE. ASSESSMENT CHARTED, MEDS HELD PER NPO STATUS. PATIENT VOICING ABD DISCOMFORT AND DIFFICULTY VOIDING. ORDER FOR URINARY CATHETER PLACEMENT IMPLEMENTED; >800MLS OF URINE DRAINED WITHIN 30 MINUTES OF PLACEMENT. PATIENT STATED HAVING SPINAL CORD STROKE WHICH MAY BE CAUSING RETENTION. NEW PAIN MEDS (TYELENOL) ADMINISTERED W MINIMAL RELIEF VOICED. PATIENT IS NOW SCHEDULED FOR EGD/COLONOSCOPY TOMORROW. WILL START ON BOWEL PREP THIS AFTERNOON AND WILL BE NPO AFTER MIDNIGHT. IVF INFUSING ON LAC W NO ISSUES. CONTINUING FREQUENT MONITORING ON PATIENT. PATIENT OFFERED HELP W REPOSITIONING BUT IS GETTING UPX1 WITH CANE; FALL PRECAUTIONS REMAIN IN PLACE
[2021-01-30 04:30] LABS: HEMATOCRIT 33.7 % (37.0-47.0); HEMOGLOBIN 11.4 gm/dL (12.0-15.0); MCH 28.4 pg (26.0-34.0); MCHC 33.8 g/dL (28.0-37.0); RBC 4.01 mil/uL (4.20-5.00); RDW 14.6 % (10.5-14.5); WBC 7.1 thou/uL (4.0-11.0)
[2021-01-30 04:55] LABS: CALCIUM 8.8 mg/dL (8.5-10.1); CREATININE 1.2 mg/dL (0.6-1.0)
[2021-01-30 07:13] VITALS: BP 164/68
--- NOTE | 2021-01-30 07:48 | NUR ---
Pt. rested quietly at intervals during the night when checked on during frequent rounds. No bloody stools observed. She had elevated bp (see vs) and prn hydralazine given and brought bp dowm. Prn tylenol given for c/p pain (see emar) with relief noted. She has been up to the comode and is eliminating clear colored stool. Bed alarm is on.
[2021-01-30 08:06] VITALS: BP 164/68
[2021-01-30 09:00] VITALS: BP 164/68
--- NOTE | 2021-01-30 09:33 | 2DMMODE ---
[facility] [place] [address] 2 D/M-MODE ECHOCARDIOGRAM Name: ZACHERY FARFAN Room #: 458-P ADM IN .R.#: [id number] Admission: 01/29/21 Attend Phys: Tony Downs MD Discharge: Date of : 45 Report #: [id number] THIS REPORT FOR: cc: King Wright MD, Steven E. MD Santiago, Patrick MD [facility] ~ APPROVED REPORT Study performed: 01/30/2021 08:50:31 EXAM: Comprehensive 2D, Doppler, and color-flow Echocardiogram Patient Location: Bedside Room #: 458 Status: routine BSA: 2.13 HR: 57 bpm BP: 146/69 mmHg Rhythm: NSR Other Information Study Quality: Adequate Technically limited study due to morbid obesity. Indications HTN. Hx: UT, PCI, HTN, HLP, DM. 2D Dimensions IVSd: 14.05 (7-11mm) LVOT Diam: 20.89 (18-24mm) LVDd: 55.49 mm PWd: 13.15 (7-11mm) Ascending Ao: 34.94 (22-36mm) LVDs: 34.42 (25-40mm) Left Atrium: 41.73 (27-40mm) Aortic Root: 35.31 mm Volumes Left Atrial Volume (Systole) Single Plane 4CH: 73.98 mL Single Plane 2CH: 95.63 mL LA ESV Index: 42.00 mL/m2 Aortic Valve AoV Peak Rambo.: 1.77 m/s AO Peak Gr.: 12.59 mmHg LVOT Max P.75 mmHg [facility] [address] [place] [address] 2 D/M-MODE ECHOCARDIOGRAM Name: ZACHERY FARFAN Room #: 458-P [facility] IN [facility]#: [id number] Admission: 01/29/21 Attend Phys: Tony Downs MD Discharge: Date of : 45 Report #: [id number] LVOT Max V: 1.30 m/s CHAMP Vmax: 2.51 cm2 Mitral Valve E/A Ratio: 0.8 MV Decel. Time: 260.31 ms MV E Max Rambo.: 0.82 m/s MV A Rambo.: 1.08 m/s MV PHT: 75.49 ms IVRT: 73.82 ms Pulmonary Valve PV Peak Rambo.: 1.39 m/s PV Peak Gr.: 7.72 mmHg Pulmonary Vein P Vein S: 0.70 m/s P Vein D: 0.34 m/s P Vein S/D Ratio: 2.06 Tricuspid Valve TR Peak Rambo.: 2.71 m/s RAP Estimate: 5.00 mmHg TR Peak Gr.: 29.27 mmHg PA Pressure: 34.00 mmHg Left Ventricle The left ventricle is normal size. There is normal LV segmental wall motion. Mild to moderate concentric left ventricular hypertrophy. Left ventricular systolic function is normal. LVEF is 65%. Mild diastolic dysfunction is present (impaired relaxation pattern). Right Ventricle The right ventricle is normal size. The right ventricular systolic function is normal. Atria Left atrium is moderately dilated. The right atrium size is normal. Aortic Valve The Aortic valve is mildly sclerotic. No aortic regurgitation is present. There is no aortic valvular stenosis. Mitral Valve The mitral valve is normal in structure. Mild mitral regurgitation. No evidence of mitral valve stenosis. [facility] [address] [place] [address] 2 D/M-MODE ECHOCARDIOGRAM Name: ZACHERY FARFAN Ebenezer Room #: 458-P [facility] IN .R.#: [id number] Admission: 01/29/21 Attend Phys: Tony Downs MD Discharge: Date of : 45 Report #: [id number] Tricuspid Valve The tricuspid valve is normal in structure. Trace tricuspid regurgitation. Estimated PAP is 35mmHg. Pulmonic Valve Pulmonic valve is not well visualized. Great Vessels The aortic root is normal in size. The ascending aorta is normal in size. IVC is normal in size and collapses >50% with inspiration. Pericardium There is no pericardial effusion. <Conclusion> Technically difficult study Normal left ventricular size with mild to moderate concentric hypertrophy Ejection fraction 60% Grade 1 diastolic dysfunction Normal right ventricular size/function Left atrium mildly dilated Aortic valve mildly sclerotic without stenosis Mild mitral valve insufficiency Trace tricuspid valve insufficiency Pulmonary systolic pressure estimated 35 mmHg No pericardial effusion Normal aortic root size. <ELECTRONICALLY SIGNED> By: Sam Go MD, FACC 01/30/21931 1 1 Sam Go MD, FACC /INF
--- NOTE | 2021-01-30 09:50 | NUR ---
Assumed pt care at 7am.Pt in bed resting. Assessment completed.vss. Cardiology road worker here,order noted. Po cardiac meds given as ordered.Assisted pt to use br. Echo done early this am before pt left for gi lab at 0937 per wc accompanied by and transporter.Will continue to monitor.
[2021-01-30 12:10] VITALS: BP 156/66
[2021-01-30 12:34] VITALS: BP 171/87
--- NOTE | 2021-01-30 13:36 | EKG ---
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 : 1945 Requested By: Marni Cm Order Number: [id number] : Sam Go Measurements Intervals [place] Rate: 63 P: -7 MT: 187 QRS: -18 QRSD: 122 T: -15 QT: 446 QTc: 457 Interpretive Statements Sinus rhythm Probable left ventricular hypertrophy Inferior infarct, old Compared to ECG 09/30/2016 13:28:21 Ventricular premature complex(es) no longer present Myocardial infarct finding still present Electronically Signed On 01-30-2021 13:36:23 CDT by Sam Go [email or web address] <ELECTRONICALLY SIGNED> By: Sam Go MD, [facility] 01/30/21 1336 0758 0758 Sam Go MD, [facility] /EPI
[2021-01-30] MEDS ORDERED: CEPHALEXIN500 MG PO (14:16)
[2021-01-30 14:41] VITALS: BP 164/68
--- NOTE | 2021-01-30 15:41 | NUR ---
Met with patient who admits with GI bleed. Patient reports she lives in independent home with spouse. She reports she has a cane she uses in community but not at home. She lives in [facility]. She rpeorts doing well with steps. She reports since COVID she has gained weight and not been ambulating as much. She reports due to COVID she almost didnt come to hospital. Discussed home health therapy and jaylan is interested. Spouse arrived and reviewed home health care with patient and spouse. Jaylan given list of home health agencies. She chose [facility] home health. Patient requested only vaccinated staff come to home. Sp with Stella in admissions who reports they can accomdate. Evelia carter. Faxed orders and they where rec.
== END 2021-01-30 15:30 | disposition home health service (06) | DRG 378 ==
LOC: ER 21:58 → 4W 01-29 01:22 → EROBS 01-29 01:22 → 4W 01-29 02:00
PROVIDERS: Emergency Medicine; Nurse Practitioner Family; ADMIT Hospitalist; ATTEND Hospitalist
DX: K57.31 Diverticulosis of large intestine without perforation or abscess with bleeding (principal); N17.9 Acute kidney failure, unspecified; N39.0 Urinary tract infection, site not specified; Z68.42 Body mass index [BMI] 45.0-49.9, adult; I10 Essential (primary) hypertension; E78.00 Pure hypercholesterolemia, unspecified; E03.9 Hypothyroidism, unspecified; E11.9 Type 2 diabetes mellitus without complications; K22.2 Esophageal obstruction; K44.9 Diaphragmatic hernia without obstruction or gangrene; K64.8 Other hemorrhoids; K64.4 Residual hemorrhoidal skin tags; I25.10 Atherosclerotic heart disease of native coronary artery without angina pectoris; E66.9 Obesity, unspecified; I16.0 Hypertensive urgency; Z20.822 Contact with and (suspected) exposure to COVID-19; Z90.710 Acquired absence of both cervix and uterus; Z90.49 Acquired absence of other specified parts of digestive tract; Z88.6 Allergy status to analgesic agent; Z88.8 Allergy status to other drugs, medicaments and biological substances; Z95.5 Presence of coronary angioplasty implant and graft
CPT/HCPCS: 10045; 62110; 62900; 70005

== ENCOUNTER → 2021-02-04 | Outpatient (CLI) | payer OTHER ==
[~2021-02-04] MED LIST changes: +AVAPRO300 MG PO; +CEPHALEXIN500 MG PO; +OMEPRAZOLE40 MG PO
== END ==
LOC: SJCVCIMAG 10:04
PROVIDERS: ATTEND Internal Medicine Cardiovascular Disease
DX: K76.0 Fatty (change of) liver, not elsewhere classified (principal); I49.3 Ventricular premature depolarization; I10 Essential (primary) hypertension; I89.0 Lymphedema, not elsewhere classified; E78.5 Hyperlipidemia, unspecified; I87.2 Venous insufficiency (chronic) (peripheral); I25.10 Atherosclerotic heart disease of native coronary artery without angina pectoris; I87.303 Chronic venous hypertension (idiopathic) without complications of bilateral lower extremity; E78.00 Pure hypercholesterolemia, unspecified; E11.40 Type 2 diabetes mellitus with diabetic neuropathy, unspecified; Z79.4 Long term (current) use of insulin; Z86.73 Personal history of transient ischemic attack (TIA), and cerebral infarction without residual deficits; Z88.2 Allergy status to sulfonamides; Z88.5 Allergy status to narcotic agent; Z88.8 Allergy status to other drugs, medicaments and biological substances; Z79.82 Long term (current) use of aspirin; Z79.899 Other long term (current) drug therapy

== ENCOUNTER 2021-02-05 05:01 | Emergency (ER) | payer OTHER ==
[~2021-02-05] VITALS: Ht 162.6 cm; Wt 107.5 kg
[2021-02-05 06:18] LABS: HEMATOCRIT 36.2 % (37.0-47.0); HEMOGLOBIN 11.8 gm/dL (12.0-15.0); MCH 27.5 pg (26.0-34.0); MCHC 32.7 g/dL (28.0-37.0); MCV 84.1 fL (80.0-100.0); RBC 4.31 mil/uL (4.20-5.00); RDW 14.6 % (10.5-14.5); WBC 7.6 thou/uL (4.0-11.0)
[2021-02-05 06:28] LABS: CALCIUM 9.2 mg/dL (8.5-10.1); POTASSIUM 4.4 mmol/L (3.5-5.1)
[2021-02-05 06:35] LABS: ALBUMIN 3.3 g/dL (3.4-5.0); TOTAL BILIRUBIN 0.5 mg/dL (0.2-1.0); TOTAL PROTEIN 7.4 g/dL (6.4-8.2)
[2021-02-05 07:48] LABS: APTT 23.2 Seconds (24.5-32.8); INR 0.94; PROTIME 10.3 Seconds (10.5-12.1)
[2021-02-05 08:23] VITALS: BP 195/72
== END 2021-02-05 08:23 | disposition home or self-care (01) ==
LOC: ER 05:01
DX: S00.83XA Contusion of other part of head, initial encounter (principal); I10 Essential (primary) hypertension; E78.00 Pure hypercholesterolemia, unspecified; E03.9 Hypothyroidism, unspecified; E11.9 Type 2 diabetes mellitus without complications; Z90.49 Acquired absence of other specified parts of digestive tract; Z90.710 Acquired absence of both cervix and uterus; Z79.82 Long term (current) use of aspirin; Z79.4 Long term (current) use of insulin; Z79.899 Other long term (current) drug therapy; Z88.6 Allergy status to analgesic agent; Z88.1 Allergy status to other antibiotic agents; W18.2XXA Fall in (into) shower or empty bathtub, initial encounter; Y93.89 Activity, other specified; Y92.89 Other specified places as the place of occurrence of the external cause; Y99.8 Other external cause status